=== PATIENT | male | born 1960 | race Caucasian/White ===

== ENCOUNTER 2016-08-01 19:15 | Emergency (ER) | payer BC, OTHER ==
[2016-08-01] MEDS ORDERED: cloNIDine HCL 0.1 MG TAB PO STA (19:46)
[2016-08-01] MEDS ORDERED: DIPH,PERTUS(ACELL)TETVAC-LF 0.5 ML VIAL IM ONE (19:47)
[2016-08-01 19:49] VITALS: RESP 20; TEMP 98.2
--- NOTE | 2016-08-01 20:10 | ED ---
Wound/Laceration HPI - General Chief Complaint: Wound/Laceration Stated Complaint: L arm laceration Time Seen by Provider: 08/01/16 19:46 Source: patient, RN notes reviewed Mode of arrival: ambulatory Limitations: no limitations - History of Present Illness Initial Comments: Patient is a 56-year-old male presents to the emergency room for evaluation of left forearm laceration. Patient states around 4 PM this evening he accidentally cut himself with a knife on his right forearm. Patient states the area did not bleed a lot until shortly before arrival. Patient states he went on cover the area and it began to bleed significantly. Patient denies taking blood thinners. Patient denies any significant pain. Patient denies numbness or tingling in his hand. Patient states he is not sure when his last tetanus vaccine was. Patient denies any other symptoms or complaints this time. - Related Data Previous Rx's Medication Instructions Recorded Cephalexin [Keflex] 500 mg PO Q6HR 5 Days 08/01/16 Lisinopril [Zestril] 10 mg PO DAILY 14 Days 08/01/16 Allergies Allergy/AdvReac Type Severity Reaction Status Date / Time No Known Allergies Allergy Verified 08/01/16 19:49 Review of Systems ROS Statement: Those systems with pertinent positive or pertinent negative responses have been documented in the HPI. ROS Other: All systems not noted in ROS Statement are negative. Past Medical History Past Medical History: No Reported History History of Any Multi-Drug Resistant Organisms: None Reported Past Surgical History: No Surgical Hx Reported Past Psychological History: No Psychological Hx Reported Smoking Status: Current every day smoker Past Alcohol Use History: Occasional Past Drug Use History: None Reported General Exam - General Exam Comments Initial Comments: Sitting in exam room in no acute distress. Limitations: no limitations General appearance: alert, in no apparent distress Head exam: Present: atraumatic, normocephalic, normal inspection Eye exam: Present: normal appearance ENT exam: Present: normal exam Neck exam: Present: normal inspection Respiratory exam: Absent: respiratory distress Left Forearm Wrist exam: Present: full ROM, laceration (2 cm open laceration on mid volar portion of the forearm.). Absent: tenderness Neuro motor exam: Present: wrist extension intact, thumb opposition intact, thumb IP flexion intact, thumb adduction intact, fingers 2-5 abduction intact Vascular: Present: normal capillary refill (Capillary refill less than 2 seconds ), radial pulse (2+), ulnar pulse (2+) Back exam: Present: normal inspection Neurological exam: Present: alert, oriented X3, CN II-XII intact, normal gait Psychiatric exam: Present: normal affect, normal mood Skin exam: Present: warm, dry. Absent: rash Course Vital Signs 08/01/16 08/01/16 19:46 20:52 Temperature 98.2 F Pulse Rate 75 85 Respiratory 20 20 Rate Blood Pressure 216/120 195/109 O2 Sat by Pulse 100 97 Oximetry Procedures - Laceration Laceration #1 Consent Obtained: verbal consent Indication: laceration Site: other (left forearm) Size (cm): 2 Description: linear Depth: simple, single layer Anesthetic Used: lidocaine 1% Anesthesia Technique: local infiltration Amount (mls): 5 Pre-repair: wound explored, irrigated extensively Type of Sutures: nylon Size of Sutures: 5-0 Number of Sutures: 5 Technique: simple, interrupted Patient Tolerated Procedure: well, no complications Medical Decision Making - Medical Decision Making Patient is a 56-year-old male presents to the emergency room for evaluation of a forearm laceration. Patient was updated on his tetanus vaccine. Laceration repaired with sutures. Patient also noted to have an elevated blood pressure. Patient was given Catapres. Blood pressure did begin to go down after medications given. Will send patient home on lisinopril and have her follow-up with his primary care provider on Thursday for reevaluation. Patient denies any symptoms. Patient denies headache, chest pain, shortness of breath, diaphoresis numbness or tingling in extremities, changes in vision. Patient states he understands everything that was discussed with him. Return parameters discussed. Case discussed with Dr. Stewart. Disposition Clinical Impression: Laceration of left forearm, High blood pressure Disposition: HOME SELF-CARE Condition: Good Instructions: Care For Your Stitches (ED), Laceration (ED), Hypertension (ED) Additional Instructions: Do not soak suture area in water. Clean suture area with a damp cloth. Please return in 7-10 days for suture removal. Take Tylenol or Motrin as needed for discomfort. Take antibiotics as directed. Take blood pressure medication as directed. Please follow up with primary care provider in 1-2 days for reevaluation of blood pressure. If any new symptom arises, symptoms worsen or fever develops, return to ER as soon as possible. Prescriptions: Cephalexin [Keflex] 500 mg PO Q6HR 5 Days Lisinopril [Zestril] 10 mg PO DAILY 14 Days Referrals: Bill Ward MD [Primary Care Provider] - 1-2 days Time of Disposition: 20:48
[2016-08-01 20:53] VITALS: BP 195/109; PULSE 85
== END 2016-08-01 21:00 | disposition home or self-care (01) ==
LOC: EC 19:15
DX: S51.812A Laceration without foreign body of left forearm, initial encounter (principal); W26.0XXA Contact with knife, initial encounter; I10 Essential (primary) hypertension; Z23 Encounter for immunization; F17.200 Nicotine dependence, unspecified, uncomplicated
CPT/HCPCS: 12001; 90715; 99282

== ENCOUNTER → 2020-01-24 | Outpatient (CLI) | payer OTHER ==
--- NOTE | 2020-01-24 09:14 | US ---
EXAMINATION TYPE: US carotid duplex BILAT DATE OF EXAM: 01/24/2020 COMPARISON: NONE CLINICAL HISTORY: R55 Syncope I48.92 A Fib. EXAM MEASUREMENTS: RIGHT: Peak Systolic Velocity (PSV) cm/sec ----- Right CCA: 134 ----- Right ICA: 111 ----- Right ECA: 146 ICA/CCA ratio: 0.8 RIGHT: End Diastole cm/sec ----- Right CCA: 31.7 ----- Right ICA: 30 ----- Right ECA: 30.9 LEFT: Peak Systolic Velocity (PSV) cm/sec ----- Left CCA: 123 ----- Left ICA: 131 ----- Left ECA: 156 ICA/CCA ratio: 1.0 LEFT: End Diastole cm/sec ----- Left CCA: 39.1 ----- Left ICA: 33.7 ----- Left ECA: 37 VERTEBRALS (direction of flow): Right Vertebral: Antegrade Left Vertebral: Antegrade Rhythm: Normal Minimal amount of plaque visualized. IMPRESSION: No evidence of clinically significant stenosis bilaterally. Any stenosis that may be pre sent is less than 50%. Criteria for Assigning % of Stenosis / Diameter reduction (Estimation based on the indirect measurements of the internal carotid artery velocities (ICA PSV). 1. Normal (no stenosis)=ICA PSV < 125 cm/s: ratio < 2.0: ICA EDV<40 cm/s. 2. Less than 50% stenosis=ICA PSV < 125 cm/s: ratio < 2.0: ICA EDV<40 cm/s. 3. 50 to 69% stenosis=ICA PSV of 125 to 230 cm/s: ration 2.0 ? 4.0: ICA EDV 40-100 cm/s. 4. Greater than 70% stenosis to near occlusion= ICA PSV > 230 cm/s: ratio > 4.0: ICA EDV > 100 cm/s. 5. Near occlusion= ICA PSV velocities may be low or undetectable: variable ratio and ICA EDV. 6. Total occlusion=unable to detect flow.
--- NOTE | 2020-01-24 12:49 | CT ---
EXAMINATION TYPE: CT brain wo con DATE OF EXAM: 01/24/2020 HISTORY: headache, dizziness, syncope CT DLP: 1195 mGycm. Automated Exposure Control for Dose Reduction was Utilized. TECHNIQUE: CT scan of the head is performed without contrast. COMPARISON: None. FINDINGS: There is a cystic lesion of the posterior fossa retrocerebellar on the left measuring up to approxima tely 2.9 x 1.9 x 5.3 cm (3:28, 6:29). There is minimal mass effect on the left cerebellum. There is n o acute intracranial hemorrhage or midline shift identified. Patchy periventricular hypodensities mos t likely sequela of chronic microvascular ischemic changes. The ventricles, basal cisterns, and sulci are within normal limits for size. The globes are grossly symmetric. Visualized sinuses and mastoid air cells are clear. IMPRESSION: 1. 2.9 x 1.9 x 5.3 cm left retrocerebellar cystic lesion most likely represents arachnoid cyst, with minimal mass effect on the left cerebellum. 2. No acute hemorrhage or midline shift.
== END | disposition home or self-care (01) ==
LOC: RADCTMAIN 08:09
PROVIDERS: ATTEND Family Medicine
DX: G93.89 Other specified disorders of brain (principal); I48.92 Unspecified atrial flutter
CPT/HCPCS: 70450; 93880